=== PATIENT | male | born 1950 | race Caucasian/White ===

== ENCOUNTER 2020-07-22 06:51 | Day surgery (SDC) | payer MEDICARE, OTHER ==
[2020-07-22] MEDS ORDERED: Lactated Ringers 1,000 ML IV SCH (07:00)
[2020-07-22] MEDS ORDERED: fentaNYL 100 MCG/2 ML SDV ONE (07:51)
[2020-07-22] MEDS ORDERED: Propofol 200 MG/20 ML SDV ONE (07:51)
[2020-07-22 08:59] VITALS: BP 128/88; PULSE 68
--- NOTE | 2020-07-22 10:59 | OR ---
DATE OF SURGERY: 07/22/2020. REFERRING PROVIDER: CARLOS Cartagena PRE-OPERATIVE DIAGNOSES: History of colon polyps. Last colonoscopy in 2014 was normal. Last polyps on colonoscopy was 2011. There is no family history of colon cancer and the patient is asymptomatic. POST-OPERATIVE DIAGNOSES: 1. 2 mm polyp at 130 cm, removed with cold forceps. 2. Mild left-sided diverticulosis. 3. Normal-appearing distal ileum. PROCEDURE: Colonoscopy with polypectomy x1 using cold forceps. SURGEON: Bhavesh Miller M.D. ANESTHESIA: Monitored anesthesia care. BOWEL PREP: Good. Dario is a 70-year-old male who was brought to the endoscopy suite after discussing risks and benefits of the procedure. Informed consent was obtained for conscious sedation and colonoscopy with or without biopsy and/or polypectomy. We also discussed possibility of missed lesions. Pre-procedure exam was unremarkable. IV, oxygen, and monitors were placed. The patient was placed in the left lateral decubitus position. Sedation was administered and a digital rectal exam was performed and remarkable for moderately enlarged prostate, but no palpable nodules noted. Colonoscope was passed into the rectum and slowly advanced all the way to the cecum. Cecum was viewed and photographed. Ileocecal valve was intubated and distal ileum was normal in appearance. The colonoscope was slowly withdrawn and the mucosa was closed observed in a direct circumferential manner. The ascending colon did reveal 2 mm polyp at 130 cm, removed with cold forceps. The transverse colon was unremarkable. The descending and sigmoid colon revealed some mild diverticulosis. Retroflexion was performed and rectal mucosa was unremarkable. Scope was removed. The patient tolerated the procedure well. The patient was monitored until that baseline status. Discharge instructions were reviewed and the patient was discharged in good condition. COMPLICATIONS: None. TOTAL TIME: 24 minutes. ESTIMATED BLOOD LOSS: Less than 1 mL. RECOMMENDATIONS/FOLLOW-UP: We will await results of path report to determine ideal followup interval. Okay for the patient to resume his warfarin tonight. I would like to kindly thank Juan Rdz for this referral. DMB: 07/22/2020 08:59:08 MODL: 07/22/2020 10:36:44 /[id number]
== END 2020-07-22 10:15 | disposition home or self-care (01) ==
LOC: VM.SDS 06:51
PROVIDERS: ATTEND Family Medicine
DX: Z12.11 Encounter for screening for malignant neoplasm of colon (principal); D12.2 Benign neoplasm of ascending colon; K57.30 Diverticulosis of large intestine without perforation or abscess without bleeding; E11.9 Type 2 diabetes mellitus without complications; E78.5 Hyperlipidemia, unspecified; E03.9 Hypothyroidism, unspecified; I10 Essential (primary) hypertension; E66.3 Overweight; E83.52 Hypercalcemia; Z01.812 Encounter for preprocedural laboratory examination; Z20.828 Contact with and (suspected) exposure to other viral communicable diseases; E29.1 Testicular hypofunction; Z86.010 Personal history of colon polyps; Z79.01 Long term (current) use of anticoagulants; Z79.4 Long term (current) use of insulin; Z91.041 Radiographic dye allergy status; Z86.711 Personal history of pulmonary embolism; Z68.28 Body mass index [BMI] 28.0-28.9, adult; Z79.899 Other long term (current) drug therapy
CPT/HCPCS: 00811; 36415; 82962; 85610; 88305; J2704; J3010; J7120; U0002

== ENCOUNTER 2024-02-13 17:10 | Emergency (ER) | payer MEDICARE, OTHER ==
[2024-02-13] MEDS: Lidocaine 1% 10 ML MDV INJECT ONE (17:33)
[2024-02-13 17:43] VITALS: BP 143/91; PULSE 81
== END 2024-02-13 17:59 | disposition home or self-care (01) ==
LOC: VM.ED 17:10
DX: S01.81XA Laceration without foreign body of other part of head, initial encounter (principal); I10 Essential (primary) hypertension; E03.9 Hypothyroidism, unspecified; Z79.4 Long term (current) use of insulin; Z91.041 Radiographic dye allergy status; Z79.899 Other long term (current) drug therapy; Z79.01 Long term (current) use of anticoagulants; W22.8XXA Striking against or struck by other objects, initial encounter
CPT/HCPCS: 12011; 99282; 99283; J3490